=== PATIENT | male | born 1935 | race Caucasian/White ===

== ENCOUNTER 2016-09-25 22:29 | Inpatient (IN) ==
[2016-09-25] MEDS ORDERED: ALUM/MAG/SIMETH/LIDO VISC 1:1 30 ML BOTTLE PO STA (23:33)
[2016-09-25] MEDS ORDERED: NITROGLYCERIN 2% OINT 1 INCH/GM PACK TOP STA (23:33)
[2016-09-25] MEDS ORDERED: METOPROLOL TARTRATE 25 MG TABLET PO STA (23:33)
[2016-09-25] MEDS ORDERED: MORPHINE 2 MG/1 ML SYRINGE IV STA (23:33)
[2016-09-25] MEDS ORDERED: ONDANSETRON 4 MG/2 ML VIAL IV STA (23:33)
[2016-09-25] MEDS ORDERED: ASPIRIN 325 MG TABLET PO STA (23:33)
[2016-09-25] MEDS ORDERED: NITROGLYCERIN 2% OINT 1 INCH/GM PACK TOP ONE (23:44)
[2016-09-25] MEDS ORDERED: ONDANSETRON 4 MG/2 ML VIAL ONE (23:44)
[2016-09-25] MEDS ORDERED: METOPROLOL TARTRATE 25 MG TABLET ONE (23:44)
[2016-09-25] MEDS ORDERED: ASPIRIN 325 MG TABLET ONE (23:45)
[2016-09-25] MEDS ORDERED: MORPHINE 2 MG/1 ML SYRINGE ONE (23:45)
[2016-09-25] MEDS ORDERED: ALUM/MAG/SIMETH/LIDO VISC 1:1 30 ML BOTTLE PO ONE (23:45)
--- NOTE | 2016-09-26 00:11 | Emergency Department Note ---
IRohit Emily, am scribing for, and in the presence of, Yony Borja MD 00: 03. Huong Montana Charles R, MD, personally performed the services described in this documentation, ascribed by Allyssa Bee in my presence, and it is both accurate and complete . Arrival - Arrival Chief Complaint: Chest Pain Stated Complaint: Heart issues/right arm pain ED Nursing Triage Note: pt presented to triage via w/c with c/o chest pain that radiates to elena arm. pain resolved by arrival to triage. recent surgery on . 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 Pt reports taking a nitro when pain started, and is concerned when arm pain starts due to PMHx. Pt recently saw Dr. 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 Pt also had a blockage in cardiac stent which was only ballooned. Pt describes left arm pain as "pulsating as a heart beat," but denies sweating, nausea or SOB. Pt is a taking Eliquis and Plavix. PMHx of 4 angioplasty surgeries years ago, cardiac bypass with stents and saphenous vein graft to first obtuse marginal in 2013, HTN; Afib, post PCI in 2014; Cerbral palsy; MARTINEZ to LAD, SVG to RCA, SVG to OM1. Pt is referred to as "Creeper." Onset (ago): hour(s) Consistency: intermittent, now resolved Severity: mild, moderate Severity scale (1-10): 4 Quality: other (pulsating) Allergies/Adverse Reactions: Allergies Allergy/AdvReac Type Severity Reaction Status Date / Time dipyridamole Allergy Nausea Verified 12/04/14 06:50 [From Persantine] Home Medications: Home Medications Medication Instructions Recorded Confirmed Type Aspirin EC Tab 81 mg PO DAILY 06/01/16 06/01/16 History Atorvastatin [Lipitor] 20 mg PO QOTHER DAY 06/01/16 06/01/16 History Dutasteride [Avodart] 0.5 mg PO QAM 06/01/16 06/01/16 History Ferrous Gluconate 324 mg PO BID 06/01/16 06/01/16 History Multivitamin [Multivitamins] 1 each PO QAM 06/01/16 06/01/16 History Omeprazole 20 mg PO BID 06/01/16 06/01/16 History Polycarbophil [Fibercon] 1,875 mg PO QAM 06/01/16 06/01/16 History Trospium Chloride 20 mg PO QAM 06/01/16 06/01/16 History Enalapril Maleate 20 mg PO QPM #0 06/04/16 06/01/16 Rx Ticagrelor [Brilinta] 90 mg PO BID #60 tablet 06/04/16 Rx amLODIPine [Norvasc] 5 mg PO QAM #0 06/04/16 06/01/16 Rx Review of System - Review of System 12 point system: reviewed and no additional remarkable complaints except as stated - Review of System Constitutional: Absent: chills, diaphoresis, fever, weakness Respiratory: Absent: respiratory distress Cardiovascular: Present: chest pain (radiating to left arm; now resolved) Gastrointestinal: Absent: abdominal pain, nausea, vomiting Musculoskeletal: Present: arm pain (left arm pain, pulsating). Absent: back pain Skin: Absent: rash Neurological: Absent: headache, numbness, confusion, abnormal gait Medical,Surgical,& Family Hx - Medical History Cardio: History of: Cardiac Dysrhythmia (Atrial fibrillation post PCI in 2013), CAD (As above with coronary bypass grafting in 1995), Hypertension Neurology: History of: Cerebrovascular Accident (Lacunar infarct), Cerebral Palsy No history of: Seizures HEENT: History of: Eye Problem (right eye retnial occulsion) Other: History of: Miscellaneous Medical Problems (Basil cell CA right temporal region) - Surgical History Cardiac Surgeries: Sugical HX of: Cardiac Catheterization (stent and saphenous vein graft to first obtuse marginal in 2013), Cardiac Surgery (MARTINEZ to LAD, SVG to RCA, SVG to OM1) Neurologic Surgeries: Patient denies: Neurologic Surgery - Social History Smoking Status: Never smoker Frequency of Alcohol Use: None Type of Drug Use: None Marital Status: Lives With:: Spouse Exam Vital Signs: Vital Signs Temperature 97.1 F L 09/25/16 23:27 Pulse Rate 84 09/25/16 23:27 Respiratory Rate 18 09/25/16 23:27 Blood Pressure 148/73 09/25/16 23:27 O2 Sat by Pulse Oximetry 99 09/25/16 22:31 - General General appearance: alert, in no apparent distress - Head Head exam: Present: atraumatic, normocephalic - Eye Eye exam: Present: PERRL, EOMI - ENT ENT exam: Present: mucous membranes moist, other (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 Absent: mucous membranes dry - Neck Neck exam: Present: full ROM. Absent: tenderness - Chest Chest inspection: Present: symmetric chest wall rise. Absent: tenderness - Respiratory Respiratory exam: Present: normal lung sounds bilaterally. Absent: respiratory distress - Cardiovascular Cardiovascular exam: Present: regular rate, normal rhythm, normal heart sounds - Abdominal Exam Abdominal exam: Present: soft. Absent: tenderness - Extremities Exam Extremities exam: Present: full ROM. Absent: tenderness, pedal edema - Neurological Exam Neurological exam: Present: alert, oriented X3, CN II-XII intact. Absent: motor sensory deficit - Psychiatric Psychiatric exam: Present: normal affect, normal mood - Skin Skin exam: Present: warm, dry Course - Consultations Consultation #1: Dr. Sanchez will admit patient Time: 01:41 Results - Labs CBC & BMP: 09/25/16 23:48 09/25/16 23:48 Lab Results: I have reviewed the patients labs Labs: Laboratory Tests 09/25/16 09/25/16 23:48 23:48 Hgb 13.4 L Hct 39.5 L Troponin I 0.451 H Laboratory Tests 09/25/16 23:48 Sodium 140 Potassium 4.1 Chloride 104 Carbon Dioxide 27 BUN 24 H Creatinine 1.00 BUN/Creatinine Ratio 24.00 H Glucose 108 H Alkaline Phosphatase 120 H Albumin 3.1 L Albumin/Globulin Ratio 0.9 L Lipase 128.0 Disposition Clinical Impression: Chest pain, Elevated troponin, Coronary artery disease, Essential hypertension , Paroxysmal atrial fibrillation Case discussed with: patient, patient's family Disposition: Still a Patient Condition: Stable Time of Disposition: 01:42
[2016-09-26 00:21] LABS: PT Patient Result 10.3 SECS
[2016-09-26 00:39] LABS: Basophils % 0.3 % (0.0-0.8); Eosinophils # 0.1 10*3/uL (0.0-0.87); Eosinophils % 1.3 % (0.00-10.9); Hematocrit 39.5 VOL% (42.0-52.0); Hemoglobin 13.4 GM/DL (14.0-18.0); Immature Granulocytes % 0.7 %; Immature Granulocytes Absolute 0.05 #; Lymphocytes # 1.7 10*3/uL (1.4-4.0); Mean Corpuscular HGB Conc 33.9 GM/DL (32-36); Mean Corpuscular Hemoglobin 32 PG (27-34); Mean Corpuscular Volume 93.2 FL (87-102); Mean Platelet Volume 10.2 FL (9.6-12.0); Monocytes # 0.5 10*3/uL (0.11-0.8); Monocytes % 6.9 % (1.7-12.7); Neutrophils # 4.5 10*3/uL (1.4-7.4); Neutrophils % 65.8 % (38.7-73.9); Platelet Count 239 T/CUMM (130-400); Red Blood Count 4.24 MC/CUMM (3.8-5.5); Red Cell Distribution Width 12.4 % (9.3-17.3); White Blood Count 6.9 T/CUMM (4-12)
[2016-09-26 01:22] LABS: Alanine Aminotransferase 23 U/L (16-61); Albumin 3.1 G/DL (3.4-5.0); Alkaline Phosphatase 120 U/L (45-117); Aspartate Amino Transferase 25 U/L (0-37); Bilirubin,Total < 0.39 MG/DL (0.2-1.0); Blood Urea Nitrogen 24 MG/DL (7-18); Calcium 8.6 MG/DL (8.5-10.1); Glucose 108 MG/DL (74-106); Magnesium 2.1 MG/DL (1.8-2.4); Osmolality,Calculated 283.4 MOS/KG (273-304); Potassium 4.1 MMOL/L (3.5-5.1); Sodium 140 MMOL/L (136-145); Total Protein 6.5 G/DL (6.4-8.3)
[2016-09-26] MEDS ORDERED: SODIUM CHLORIDE 0.9% 1,000 ML IV SCH ×2 (02:54→16:30)
[2016-09-26] MEDS ORDERED: MAGNESIUM SULF RIDER 2 GM in PREMIX 1 EACH IV PRN ×2 (02:54→11:49)
[2016-09-26] MEDS ORDERED: ONDANSETRON 4 MG/2 ML VIAL IV PRN (02:54)
[2016-09-26] MEDS ORDERED: MAGNESIUM SULF RIDER 4 GM in PREMIX 1 EACH IV PRN (02:54)
[2016-09-26] MEDS ORDERED: MORPHINE 2 MG/1 ML SYRINGE IV PRN (02:54)
--- NOTE | 2016-09-26 03:17 | EKG Report ---
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
--- NOTE | 2016-09-26 03:46 | EKG Report ---
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
[2016-09-26 05:24] LABS: Basophils % 0.1 % (0.0-0.8); Eosinophils # 0.1 10*3/uL (0.0-0.87); Eosinophils % 1.5 % (0.00-10.9); Hematocrit 38.2 VOL% (42.0-52.0); Hemoglobin 12.9 GM/DL (14.0-18.0); Immature Granulocytes % 0.4 %; Immature Granulocytes Absolute 0.03 #; Lymphocytes # 1.4 10*3/uL (1.4-4.0); Lymphocytes % 21.2 % (21.2-54.2); Mean Corpuscular HGB Conc 33.8 GM/DL (32-36); Mean Corpuscular Hemoglobin 31 PG (27-34); Mean Corpuscular Volume 92.9 FL (87-102); Mean Platelet Volume 10.4 FL (9.6-12.0); Monocytes # 0.5 10*3/uL (0.11-0.8); Monocytes % 7.2 % (1.7-12.7); Neutrophils # 4.7 10*3/uL (1.4-7.4); Neutrophils % 69.6 % (38.7-73.9); Platelet Count 220 T/CUMM (130-400); Red Blood Count 4.11 MC/CUMM (3.8-5.5); Red Cell Distribution Width 12.3 % (9.3-17.3); White Blood Count 6.8 T/CUMM (4-12)
[2016-09-26 05:46] LABS: Hypochromasia Slight; Platelet Estimate Adequate
[2016-09-26 06:07] LABS: Albumin 3.1 G/DL (3.4-5.0); Bilirubin,Total 0.6 MG/DL (0.2-1.0); Calcium 8.4 MG/DL (8.5-10.1); Osmolality,Calculated 280.4 MOS/KG (273-304); Potassium 4.3 MMOL/L (3.5-5.1); Total Protein 6.3 G/DL (6.4-8.3)
[2016-09-26 06:18] LABS: Magnesium 2.2 MG/DL (1.8-2.4); Risk Ratio 3.58; Thyroid Stimulating Hormone 1.79 uIU/ml (0.358-3.74); VLDL CHOLESTEROL 26.6 MG/DL
--- NOTE | 2016-09-26 06:43 | EKG Report ---
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
[2016-09-26] MEDS: NITROGLYCERIN 2% OINT 1 INCH/GM PACK TOP SCH ×3 (06:59→18:09)
--- NOTE | 2016-09-26 08:19 | XRay Report ---
Exam: XR chest 1V portable Indication: Chest pain cardia megaly Comparison study: 05/22/2016 chest radiograph Findings: Cardiac silhouette is mildly enlarged with tortuosity and atherosclerotic changes of the descending thoracic aorta, similar to prior. Similar perihilar and diffuse bilateral interstitial prominence likely representing degree of underlying scarring. There is no focal consolidation. Mild elevation right hemidiaphragm is similar to prior. Low lung volumes are noted. There is no definite pneumothorax or pleural effusion. Median sternotomy wiring is noted. Impression: Essentially stable mild cardiomegaly, postsurgical changes and suggestion of interstitial scarring. PROCEDURE INTERPRETED AT [facility] DEPARTMENT OF RADIOLOGY Final Report Signed by: Bro Ibarra
[2016-09-26] MEDS ORDERED: ENOXAPARIN 40 MG/0.4 ML SYRINGE SUBCUT SCH (09:00)
--- NOTE | 2016-09-26 09:00 | Cardiology History & Physical ---
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 transplanted heart: [place] heart Associated angina: with stable angina Qualified Code(s): I25.708 - Atherosclerosis of coronary artery bypass graft(s) , unspecified, with other forms of angina pectoris (4) History of atrial fibrillation Status: Chronic Assessment and plan: SEE PLAN OF CARE LISTED BELOW Current Visit: No (5) Dyslipidemia Status: Chronic Assessment and plan: SEE PLAN OF CARE LISTED BELOW Current Visit: No (6) Hypertension Status: Chronic Current Visit: No Qualifiers: Hypertension type: essential hypertension Qualified Code(s): I10 - Essential (primary) hypertension (7) Elevated troponin Status: Acute Assessment and plan: SEE PLAN OF CARE LISTED BELOW Current Visit: Yes History of Present Illness Chief complaint: chest pain, elevated CIEs 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 March 2013 PCI with BMS of Cx SVG graft to OM. June 03, 2016 required PTCA of BMS to Cx graft for NSTEMI), hypertension, dyslipidemia, PVD, sedentary lifestyle. History of paroxysmal A. fib for which he takes Eliquis. Eliquis and Plavix were held briefly for surgery but resumed shortly thereafter. Recently diagnosed with metastatic basal cell carcinoma of the face, metastatic carcinoma to L3 and humerus. First of September underwent surgery to remove facial nerve due to basal cell carcinoma. (See heart catheterization report listed below). History of angiodysplasia of the stomach several years ago with anemia , has been stable on Plavix and Eliquis. Patient was doing relatively well until last evening around 9 PM when he began to walk up stairs. Normally, he recognizes his anginal symptoms as chest pain radiating to the right arm. However, last evening he had chest discomfort described as "squeezing and tightness" which radiated to to both arms, associated with mild shortness of breath. Lasted approximately 45 minutes and was relieved spontaneously while being transported to the ED. He has had no recurrent chest pain since admission. Troponin 0.451-0.549 this admission. EKG does not reveal STEMI. He has received aspirin, 1 dose of Lovenox last evening, beta-marito and nitrates. Eliquis on hold this morning. Patient did not breakfast this morning. I will further discuss with Dr. Sanchez and await additional recommendations. June 03, 2016 cardiac catheterization performed by Dr. Barnett revealed the followin: In-stent restenosis had a prior bare-metal stent site of the circumflex graft now treated with balloon angioplasty with a good angiographic result 2: Diffuse severe [place] multivessel coronary artery disease 3: Widely patent graft to the right coronary artery and left anterior descending 4: Distal disease of the posterolateral branch of the right coronary for continued medical management 5: Overall near normal LV function ejection fraction 50% with lateral and apical hypokinesis 6: Angio-Seal closure right femoral arteriotomy site Discussion recommendations: The patient presents with a non-ST elevation myocardial infarction likely related to bare-metal stent restenosis. Because of the patient's age and history of bleeding I felt the best approach would be to optimize treatment without drug-eluting stent placement if possible and for that reason he underwent balloon angioplasty of this area with an excellent angiographic result. Our plan will be to continue aggressive risk factor modification and anti-thrombotic treatment as tolerated. Findings have been reviewed with the patient and with his family. ASSESSMENT/PLAN: 1. CHEST PAIN CONCERNING FOR ANGINA - continue cycle cardiac biomarkers. Patient is chest pain-free. Has received Aspirin, Lovenox, beta-blockade and nitrates. 2. ELEVATED TROPONIN - continue to cycle cardiac biomarkers. Patient has had breakfast this morning but I will keep him n.p.o. to further discuss with Dr. Sanchez 3. KNOWN CAD S/P CABG - See above information regarding details of known disease 4. HYPERTENSION - usually well-controlled. Just medications accordingly during hospital stay. 5. DYSLIPIDEMIA - LDL 85. Continue lipid-lowering agent. 6. METASTATIC BASAL CELL CARCINOMA OF THE FACE, L3 AND HUMERUS - continue current plan of care. Home Medications Medication Instructions Recorded Confirmed Type Atorvastatin [Lipitor] 20 mg PO BEDTIME 06/01/16 09/26/16 History Dutasteride [Avodart] 0.5 mg PO QAM 06/01/16 09/26/16 History Ferrous Gluconate 324 mg PO BID 06/01/16 09/26/16 History Multivitamin [Multivitamins] 1 each PO QAM 06/01/16 09/26/16 History Omeprazole 20 mg PO BID 06/01/16 09/26/16 History Polycarbophil [Fibercon] 1,875 mg PO BEDTIME 06/01/16 09/26/16 History Enalapril Maleate 20 mg PO QPM #0 06/04/16 09/26/16 Rx amLODIPine [Norvasc] 5 mg PO QAM #0 06/04/16 09/26/16 Rx Apixaban [Eliquis] 2.5 mg PO BID 09/26/16 09/26/16 History Clopidogrel [Plavix] 75 mg PO DAILY 09/26/16 09/26/16 History Trospium [Sanctura] 20 mg PO BEDTIME 09/26/16 09/26/16 History Allergies Allergy/AdvReac Type Severity Reaction Status Date / Time dipyridamole Allergy Nausea Verified 12/04/14 06:50 [From Persantine] Review of systems: REVIEW OF SYSTEMS: - Constitutional Constitutional: Present: Fatigue. Absent: syncope, anorexia, night sweats - EENT Face: Pain from recent surgery Eyes: Absent: blurry vision, loss of vision, diplopia Ears: Absent: decreased hearing, ear pain, ear discharge - Cardiovascular Cardiovascular: Present: chest pain with exertion, mild dyspnea on exertion. Denies edema, palpitations. Absent: chest pain with deep breath, claudication - Respiratory Respiratory: Present: MONREAL, but denies cough. Absent: wheezing, hemoptysis, change in phlegm color - Gastrointestinal Gastrointestinal: Present: constipation. Absent: abdominal pain, hematemesis , hematochezia, melena, change in bowel habits, nausea - Genitourinary Genitourinary: Absent: difficulty urinating, dysuria, urinary hesitancy, flank pain - Musculoskeletal Musculoskeletal: Present: back pain Absent: joint swelling, muscle cramps, muscle weakness - Neurological Neurological: Present: normal gait without frequent falls. Absent: dizziness, hemiparesis - Psychiatric Psychiatric: Absent: anxiety, depression, difficulty concentrating - Endocrine Endocrine: Present: fatigue. Absent: cold intolerance, heat intolerance, polyuria, polyphagia, polydipsia - Hematologic/Lymphatic Hematologic/Lymphatic: Present: easy bruising. Absent: easy bleeding -Integumentary Integumentary: Absent: lesions, rashes, skin breakdown Medical,Surgical,& Family Hx - Medical History Cardio: History of: Cardiac Dysrhythmia (Atrial fibrillation post PCI in 2013), CAD (As above with coronary bypass grafting in 1995), Hypertension, [place] Neurology: History of: Cerebrovascular Accident (Lacunar infarct), Cerebral Palsy No history of: Seizures HEENT: History of: Eye Problem (right eye retnial occulsion) Other: History of: Miscellaneous Medical Problems (Basil cell CA right temporal region, l3, humerus) - Surgical History Cardiac Surgeries: Sugical HX of: Cardiac Catheterization (stent and saphenous vein graft to first obtuse marginal in 2013), Cardiac Surgery (MARTINEZ to LAD, SVG to RCA, SVG to OM1) Neurologic Surgeries: Patient denies: Neurologic Surgery - Social History Smoking Status: Never smoker Have you smoked in the last 12 months: No Frequency of Alcohol Use: None Type of Drug Use: None Marital Status: Lives With:: Spouse Functional capacity: independent ambulation Cardiology Physical Exam - Constitutional Vitals: Vital Signs Temp Pulse Resp BP Pulse Ox 97.2 F L 72 18 158/81 97 09/26/16 07:43 09/26/16 07:43 09/26/16 07:43 09/26/16 07:43 09/26/16 07:43 Intake and Output 09/25/16 09/26/16 09/26/16 23:59 07:59 15:59 Output Total 200 / 200 Balance -200 / -200 Output: Urine 200 / 200 Other: Voiding Method Urinal Weight 91.172 kg 92.079 kg Patient Weight 09/26/16 23:59 Weight 92.079 kg Exam: General: [Appears well with no apparent distress.] [Pleasant and cooperative. ] [Appears comfortable.] HEENT: [PERRL. Mucous membranes moist. No jaundice noted. Conjunctiva moist and clear, sclerae anicteric] Neck: No JVD/HJR, no thyromegaly or lymphadenopathy noted. No carotid bruit appreciated Cardiac: [Regular rate and rhythm.] [No murmur rub or gallop.] Lungs: [Clear to auscultation without accessory muscle use to assist the respiratory pattern.] Not requiring oxygen Abdomen: Soft, bowel sounds normoactive. Nontender and nondistended. No abdominal bruit or thrill noted. No masses noted. Musculoskeletal: No fluid collection. Decreased range of motion is noted. Extremities: No clubbing, cyanosis noted. [ No edema noted.] Upper extremity pulses 2+. Lower extremity pulses 2+. Capillary refill less than 3 seconds. Skin: No unusual lesions or rashes. No skin breakdown appreciated. Neuro: Awake, alert and oriented 3. Moves all extremities well without hemiparesis or paralysis. No essential tremor is appreciated. Result/EKG - Labs CBC & BMP: 09/26/16 03:57 09/26/16 03:57 Lab Results: I have reviewed the past 24 hour labs Labs: Laboratory Results - last 24 hr 09/25/16 09/25/16 09/25/16 23:48 23:48 23:48 WBC RBC Hgb Hct MCV MCH MCHC RDW Plt Count MPV Neut % (Auto) Lymph % (Auto) [place] % (Auto) Eos % (Auto) Baso % (Auto) Neut # (Auto) Lymph # (Auto) [place] # (Auto) Eos # (Auto) Baso # (Auto) Immature Gran % Nucleated RBC % Immature Gran # Nucleated RBCs # Platelet Estimate Hypochromasia Morphology Comment INR 1.0 PT Patient/Control Mix 10.3 Sodium 140 Potassium 4.1 Chloride 104 Carbon Dioxide 27 Anion Gap 13.1 BUN 24 H Creatinine 1.00 GFR Calculation 87 BUN/Creatinine Ratio 24.00 H Glucose 108 H Calculated Osmolality 283.4 Calcium 8.6 Magnesium 2.1 Total Bilirubin < 0.39 AST 25 ALT 23 Alkaline Phosphatase 120 H Troponin I B-Natriuretic Peptide 92 Total Protein 6.5 Albumin 3.1 L Globulin 3.4 Albumin/Globulin Ratio 0.9 L Triglycerides Cholesterol LDL Cholesterol VLDL Cholesterol HDL Cholesterol Heart Disease Risk Ratio Lipase 128.0 TSH 3rd Generation 09/25/16 09/25/16 09/26/16 23:48 23:48 03:57 WBC 6.9 RBC 4.24 Hgb 13.4 L Hct 39.5 L MCV 93.2 MCH 32 MCHC 33.9 RDW 12.4 Plt Count 239 MPV 10.2 Neut % (Auto) 65.8 Lymph % (Auto) 25.0 [place] % (Auto) 6.9 Eos % (Auto) 1.3 Baso % (Auto) 0.3 Neut # (Auto) 4.5 Lymph # (Auto) 1.7 [place] # (Auto) 0.5 Eos # (Auto) 0.1 Baso # (Auto) 0.0 Immature Gran % 0.7 Nucleated RBC % 0.0 Immature Gran # 0.05 Nucleated RBCs # 0.00 Platelet Estimate Hypochromasia Morphology Comment INR PT Patient/Control Mix Sodium Potassium Chloride Carbon Dioxide Anion Gap BUN Creatinine GFR Calculation BUN/Creatinine Ratio Glucose Calculated Osmolality Calcium Magnesium Total Bilirubin AST ALT Alkaline Phosphatase Troponin I 0.451 H 0.485 H B-Natriuretic Peptide Total Protein Albumin Globulin Albumin/Globulin Ratio Triglycerides Cholesterol LDL Cholesterol VLDL Cholesterol HDL Cholesterol Heart Disease Risk Ratio Lipase TSH 3rd Generation 09/26/16 09/26/16 09/26/16 03:57 03:57 03:57 WBC 6.8 RBC 4.11 Hgb 12.9 L Hct 38.2 L MCV 92.9 MCH 31 MCHC 33.8 RDW 12.3 Plt Count 220 MPV 10.4 Neut % (Auto) 69.6 Lymph % (Auto) 21.2 [place] % (Auto) 7.2 Eos % (Auto) 1.5 Baso % (Auto) 0.1 Neut # (Auto) 4.7 Lymph # (Auto) 1.4 [place] # (Auto) 0.5 Eos # (Auto) 0.1 Baso # (Auto) 0.0 Immature Gran % 0.4 Nucleated RBC % 0.0 Immature Gran # 0.03 Nucleated RBCs # 0.00 Platelet Estimate Adequate Hypochromasia Slight Morphology Comment INR PT Patient/Control Mix Sodium 140 Potassium 4.3 Chloride 106 Carbon Dioxide 24 Anion Gap 14.3 BUN 21 H Creatinine 0.90 GFR Calculation 99 BUN/Creatinine Ratio 23.00 H Glucose 89 Calculated Osmolality 280.4 Calcium 8.4 L Magnesium Total Bilirubin 0.60 AST 29 ALT 22 Alkaline Phosphatase 120 H Troponin I B-Natriuretic Peptide 91 Total Protein 6.3 L Albumin 3.1 L Globulin 3.2 Albumin/Globulin Ratio 0.9 L Triglycerides Cholesterol LDL Cholesterol VLDL Cholesterol HDL Cholesterol Heart Disease Risk Ratio Lipase TSH 3rd Generation 09/26/16 09/26/16 03:57 06:46 WBC RBC Hgb Hct MCV MCH MCHC RDW Plt Count MPV Neut % (Auto) Lymph % (Auto) [place] % (Auto) Eos % (Auto) Baso % (Auto) Neut # (Auto) Lymph # (Auto) [place] # (Auto) Eos # (Auto) Baso # (Auto) Immature Gran % Nucleated RBC % Immature Gran # Nucleated RBCs # Platelet Estimate Hypochromasia Morphology Comment INR PT Patient/Control Mix Sodium Potassium Chloride Carbon Dioxide Anion Gap BUN Creatinine GFR Calculation BUN/Creatinine Ratio Glucose Calculated Osmolality Calcium Magnesium 2.2 Total Bilirubin AST ALT Alkaline Phosphatase Troponin I 0.549 H B-Natriuretic Peptide Total Protein Albumin Globulin Albumin/Globulin Ratio Triglycerides 133 Cholesterol 154 LDL Cholesterol 85.0 VLDL Cholesterol 26.6 HDL Cholesterol 43 Heart Disease Risk Ratio 3.58 Lipase TSH 3rd Generation 1.790 - Diagnostic Findings Procedure: Chest x-ray: report reviewed by me - EKG EKG results: interpreted by me EKG shows: sinus rhythm
--- NOTE | 2016-09-26 09:09 | XRay Report ---
Exam: XR chest 2V Date: 09/26/2016 659 AM Indication: Shortness of breath Comparison: 09/25/2016 Technical: PA lateral Findings: Mild prominence the cardiac silhouette. Previous sternotomy and ASVD present. External cardiac leads are present. Atelectatic change present in the right base and/or scarring. Surgical clip present over the right neck is present. No pneumothorax. Degenerative spondylosis change present thoracic spine with anterolateral marginal osteophytes. Impression: 1. Previous sternotomy without acute cardiopulmonary pathology 2. Minimal scarring present or atelectatic change in the right base 3. Degenerative spondylosis change thoracic spine PROCEDURE INTERPRETED AT [facility] DEPARTMENT OF RADIOLOGY Final Report Signed by: Dr. Gaston Vogt
[2016-09-26] MEDS: amLODIPine 5 MG TABLET PO SCH (10:42)
[2016-09-26] MEDS: CLOPIDOGREL 75 MG TABLET PO SCH (10:42)
[2016-09-26] MEDS: DUTASTERIDE 0.5 MG CAPSULE PO SCH (10:42)
[2016-09-26] MEDS: FERROUS GLUCONATE 324 MG TABLET PO SCH ×2 (10:42→21:05)
[2016-09-26] MEDS: MULTIVITAMIN (CENTRUM) TABLET PO SCH (10:42)
[2016-09-26] MEDS ORDERED: POTASSIUM CHLORIDE RIDER 10 MEQ in PREMIX 1 EACH IV PRN (11:49)
[2016-09-26] MEDS ORDERED: DIAZEPAM 5 MG TABLET PO ONE (11:49)
[2016-09-26] MEDS ORDERED: diphenhydrAMINE CAP 25 MG CAPSULE PO ONE (11:49)
[2016-09-26] MEDS ORDERED: HEPARIN/NACL 0.9% 2 UNITS/ML 1,000 ML IV ONE ×2 (14:34)
[2016-09-26] MEDS ORDERED: LIDOCAINE 1% 20 ML VIAL ONE ×2 (14:34)
[2016-09-26] MEDS ORDERED: HYDROmorphone 2 MG/1 ML VIAL ONE (14:51)
[2016-09-26] MEDS ORDERED: MIDAZOLAM 2 MG/2 ML VIAL ONE (15:01)
[2016-09-26] MEDS ORDERED: ASPIRIN CHEW 81 MG TABLET PO ONE ×2 (15:15→16:13)
[2016-09-26] MEDS ORDERED: BIVALIRUDIN 250 MG VIAL IV ONE (15:15)
[2016-09-26] MEDS ORDERED: CLOPIDOGREL 300 MG TABLET ONE (16:17)
--- NOTE | 2016-09-26 16:25 | Cardiac Catheterization ---
Date of Procedure:: 09/26/16 Procedure: CLINICAL SUMMARY: The patient has known multivessel coronary artery disease and presented with unstable angina symptoms. He is undergoing cardiac catheterization for definitive coronary artery assessment and possible revascularization. PROCEDURES PERFORMED: 1. Right femoral percutaneous arteriotomy 2. Left heart catheterization. 3. Resting hemodynamics. 4. Left ventriculography. 5. Coronary arteriography. 6. Right femoral arteriogram. 7. Angio-Seal closure of the right femoral artery. 8. Coronary artery bypass graft angiography. 9. Percutaneous coronary intervention to the saphenous vein graft to the proximal segment of the obtuse marginal branch at a site of in-stent restenosis with 2 stents placed, a 4.0 x 38 mm Xience alpine drug-eluting stent and a 4.0 x 18 mm Xience alpine drug-eluting stent placed in an overlapping fashion. DESCRIPTION OF PROCEDURE: After obtaining informed consent, the patient was brought to the cardiac catheterization lab where the right groin was prepped and draped in the usual sterile manner. Using IV sedation, local anesthesia, and Modified Seldinger technique, a needle was placed in the right femoral artery and a sheath was positioned without difficulty. A left coronary catheter was advanced over a guidewire under fluoroscopic control to the ascending aorta where angiograms of the left coronary artery were undertaken in multiple views. After adequate angiograms, this catheter was withdrawn and a right coronary catheter was advanced over a guidewire under fluoroscopic control to the ascending aorta with angiograms of the RCA and bypass grafts were undertaken in numerous projections. We then proceeded directly to percutaneous intervention. We tried an AL-1 guide, and LCB guide, and finally engaged the saphenous vein to the obtuse marginal with a EBU 3.0 interventional guide. We passed PT Graphix wire beyond the area of stenosis in the proximal vessel and then performed balloon angioplasty with a 3.5 x 25 mm [place] angioplasty balloon. We then performed stenting with a 4.0 x 38 millimeter Xience alpine drug-eluting stent in the proximal to mid segment of the graft. Then, with the assistance of jesus Martinez, we placed a 4.0 x 18 mm Xience alpine drug-eluting stent proximal to the first stent but overlapping with it. We then did a post inflation with a 4.0 x 15 mm NC balloon at 2 locations within the stents. An excellent angiographic result was achieved with no significant residual stenosis. After adequate angiograms, this catheter was removed and a pigtail ventriculographic catheter was advanced over a guidewire under fluoroscopic control to the aortic valve and left ventricular pressures were measured. After adequate pressures were measured, this catheter was used to perform left ventriculography in the TOBAR projection. This catheter was then withdrawn under hemodynamic monitoring and removed from the patient. A right femoral arteriogram was performed showing adequate sheath placement for closure device deployment. The sheath was then removed and an Angio-Seal device was used to obtain hemostasis. The patient was transferred back to the room having suffered no immediate complications. HEMODYNAMICS: See the accompanying data sheet. CORONARY ARTERIOGRAPHY: LEFT MAIN: The left main coronary artery is a large caliber vessel, which bifurcates into the left anterior descending and left circumflex coronary arteries. The left main coronary artery has no significant obstructive disease. LEFT CIRCUMFLEX: The left circumflex coronary artery is a small to moderate sized vessel which gives off a moderate sized obtuse marginal branch before being occluded in its mid segment. The distal vessel fills via a saphenous vein graft. LEFT ANTERIOR DESCENDING: The left anterior descending artery is a moderate- sized vessel which has severe disease in its proximal to mid segment before a complete occlusion. The distal vessel fills via a patent left internal mammary arterial graft. RIGHT CORONARY ARTERY: The right coronary artery is occluded at its origin. Saphenous vein graft to the right coronary artery: This is a large graft which has mild diffuse luminal irregularities but no significant obstructive disease is seen. Saphenous vein graft to the obtuse marginal branch: This graft has severe diffuse in-stent restenosis throughout its proximal segment with areas of up to 99% stenosis and BETH I flow distally. Left internal mammary to left anterior descending coronary artery graft. This bypass graft is large in size and widely patent throughout its course. LEFT VENTRICULOGRAPHY: Left ventriculogram shows a left ventricular ejection fraction estimated approximately 40% with mild global hypokinesis. PERIPHERAL ARTERIOGRAPHY: Right femoral arteriogram shows a normal right iliofemoral artery with adequate sheath placement for closure device deployment. IMPRESSIONS: 1. Successful percutaneous coronary intervention to the saphenous vein graft to the proximal segment of the obtuse marginal branch at a site of in-stent restenosis with 2 stents placed, a 4.0 x 38 mm Xience alpine drug-eluting stent and a 4.0 x 18 mm Xience alpine drug-eluting stent placed in an overlapping fashion. 2. Severe [place] three-vessel coronary artery disease as described above. 3. The saphenous vein to the right coronary artery and the left internal mammary to the left anterior descending coronary artery grafts are widely patent. 4. Mild ischemic cardiomyopathy. 5. Normal right iliofemoral artery with successful Angio-Seal closure of this vessel. PLAN: Patient will be transferred back to the telemetry unit for postintervention monitoring and management. If he does well, he could possibly be discharged home tomorrow. Anesthesia: minimal conscious sedation Surgeon / Physician: Wilfred Aldrich Estimated blood loss: minimal Disposition: floor - Medications / Follow-up
[2016-09-26] MEDS ORDERED: TROSPIUM 20 MG PO SCH (21:00)
[2016-09-26] MEDS ORDERED: POLYCARBOPHIL 625 MG TABLET PO SCH (21:00)
[2016-09-26] MEDS ORDERED: ATORVASTATIN 20 MG TABLET PO SCH (21:00)
[2016-09-27] MEDS: NITROGLYCERIN 2% OINT 1 INCH/GM PACK TOP SCH ×2 (01:34→06:32)
[2016-09-27 05:25] LABS: Basophils % 0.1 % (0.0-0.8); Eosinophils # 0.1 10*3/uL (0.0-0.87); Eosinophils % 1.1 % (0.00-10.9); Hematocrit 36.9 VOL% (42.0-52.0); Hemoglobin 12.7 GM/DL (14.0-18.0); Immature Granulocytes % 0.4 %; Immature Granulocytes Absolute 0.03 #; Lymphocytes # 1.5 10*3/uL (1.4-4.0); Lymphocytes % 18.3 % (21.2-54.2); Mean Corpuscular HGB Conc 34.4 GM/DL (32-36); Mean Corpuscular Hemoglobin 32 PG (27-34); Mean Corpuscular Volume 91.8 FL (87-102); Mean Platelet Volume 10.3 FL (9.6-12.0); Monocytes # 0.6 10*3/uL (0.11-0.8); Monocytes % 7.1 % (1.7-12.7); Platelet Count 202 T/CUMM (130-400); Red Blood Count 4.02 MC/CUMM (3.8-5.5); Red Cell Distribution Width 12.3 % (9.3-17.3); White Blood Count 8.2 T/CUMM (4-12)
[2016-09-27 05:59] LABS: Calcium 8.4 MG/DL (8.5-10.1); Osmolality,Calculated 277.5 MOS/KG (273-304)
[2016-09-27 06:39] LABS: CKMB % 8.7 %
[2016-09-27 06:44] LABS: Troponin I Only 1.92 NG/ML (0.00-0.045)
--- NOTE | 2016-09-27 07:33 | EKG Report ---
Stationary ECG Study [facility] Test Date: 09/27/2016 7:32:51 AM Pat Name: LOC LAIRD Department: Room: 272 Gender: M Orthopaedic General: ANUP : 1935 Requested by: Kristopher Hardin Order Number: [id number] Reading MD: FAIZA CASTILLO Intervals [place] Rate: 82 P: 42 NV: 163 QRS: -50 QRSD: 121 T: 127 QT: 401 QTc: 439 Interpretive Statements SINUS RHYTHM WITH OCCASIONAL VENTRICULAR PREMATURE COMPLEXES WITH OCCASIONAL SUPRAVENTRICULAR PREMATURE COMPLEXES at 82 bpm RIGHT BUNDLE BRANCH BLOCK LEFT ANTERIOR FASCICULAR BLOCK LEFT VENTRICULAR HYPERTROPHY AND ST-T CHANGE POSSIBLE ANTERIOR MYOCARDIAL INFARCTION, OF INDETERMINATE AGE Electronically Signed On 09-28-16 12:11:41 CDT by FAIZA CASTILLO [email or web address]
[2016-09-27 08:35] VITALS: BP 124/78
[2016-09-27] MEDS: amLODIPine 5 MG TABLET PO SCH (09:40)
[2016-09-27] MEDS: CLOPIDOGREL 75 MG TABLET PO SCH (09:40)
[2016-09-27] MEDS: MULTIVITAMIN (CENTRUM) TABLET PO SCH (09:40)
[2016-09-27] MEDS: FERROUS GLUCONATE 324 MG TABLET PO SCH (09:40)
[2016-09-27] MEDS: DUTASTERIDE 0.5 MG CAPSULE PO SCH (09:42)
[2016-09-27] MEDS ORDERED: ASPIRIN EC 81 MG TABLET PO SCH (10:00)
--- NOTE | 2016-09-27 10:04 | Discharge Summary ---
Hospital Course - Hospital Course Hospital Course: OUTSIDE [employer] ENGINEER: DR. RENE SEPTEMBER 26, 2016: Mr. Jez Jr., 81WM, with risk factors significant for: advanced age, known coronary artery disease (S/P CABG 1996: MARTINEZ to LAD, SVG to RCA, SVG to OM1. March 2013 PCI with BMS of Cx SVG graft to OM. June 03, 2016 required PTCA of BMS to Cx graft for NSTEMI), hypertension, dyslipidemia, PVD, sedentary lifestyle. History of paroxysmal A. fib for which he takes Eliquis. Eliquis and Plavix were held briefly for surgery but resumed shortly thereafter. 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 First september underwent surgery to remove facial nerve due to basal cell carcinoma. History of angiodysplasia of the stomach several years ago with anemia, has been stable on Plavix and Eliquis. Patient was doing relatively well until last evening around 9 PM when he began to walk up stairs. Normally, he recognizes his anginal symptoms as chest pain radiating to the right arm. However, last evening he had chest discomfort described as "squeezing and tightness" which radiated to to both arms, associated with mild shortness of breath. Lasted approximately 45 minutes and was relieved spontaneously while being transported to the ED. He has had no recurrent chest pain since admission. Troponin 0.451-0.549 this admission. EKG does not reveal STEMI. He has received aspirin, 1 dose of Lovenox last evening, beta-marito and nitrates. Eliquis on hold this morning. Patient did not breakfast this morning. I will further discuss with Dr. Sanchez and await additional recommendations. SEPTEMBER 27, 2016: Underwent cardiac catheterization September 26, 2016, performed by Dr. Wilfred Aldrich. The following is noted: IMPRESSIONS: 1. Successful percutaneous coronary intervention to the saphenous vein graft to the proximal segment of the obtuse marginal branch at a site of in- stent restenosis with 2 stents placed, a 4.0 x 38 mm Xience alpine drug-eluting stent and a 4.0 x 18 mm Xience alpine drug-eluting stent placed in an overlapping fashion. 2. Severe [place] three-vessel coronary artery disease as described above. 3. The saphenous vein to the right coronary artery and the left internal mammary to the left anterior descending coronary artery grafts are widely patent. 4. Mild ischemic cardiomyopathy. 5. Normal right iliofemoral artery with successful Angio-Seal closure of this vessel. Patient has done well overnight without chest pain, heaviness, tightness. He has been walking without difficulty. Right groin is soft, free of hematoma or bruit. Labs are stable this morning. He currently has an appointment to see Dr. Rene October 18, 2016 at 0 900. I have encouraged him to keep this appointment. I will add the following to that appointment with Dr. Rene: BMP , magnesium, CBC. He will be discharged home on the following medications: ECASA 81 mg orally daily Plavix 75 mg orally daily Eliquis 2.5 mg orally twice daily starting Friday, September 28, 2016 Norvasc 5 mg orally daily Enalapril maleate 20 mg orally each evening September 27, 2016 Ferrous gluconate 324 mg orally twice daily Avodart 0.5 mg orally each morning [place] 20 mg orally each evening Atorvastatin 20 mg orally each evening Avoiding beta blockers due to history of lower heart rates in the past - Time spent with patient Time with patient DS: Greater than 30 minutes Diagnosis - Discharge Diagnosis (1) Metastatic basal cell carcinoma Status: Chronic (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 Please instruct patient to keep appointment. But, please add: BMP, magnesium, CBC to be drawn that day.) Discharge Plan - Discharge Data Disposition: Disch To Home/Self Care Condition at Discharge: Stable Discharge Diet: heart healthy Activity: other (Post cath expectations) Hygiene: other (Post cath expectations) Weight Bearing at Discharge: other (Post cath expectations) Driving: not until seen by doctor Contact your physician if you experience:: fever over 101, Difficulty voiding, Redness or swelling, Nausea/Vomiting, Shortness of breath, Bleeding, pain uncontrolled by pain medications - Discharge Medications New Aspirin EC Tab 81 mg PO DAILY #30 tablet Continue Atorvastatin [Lipitor] 20 mg PO BEDTIME Polycarbophil [Fibercon] 1,875 mg PO BEDTIME Omeprazole 20 mg PO BID Multivitamin [Multivitamins] 1 each PO QAM Dutasteride [Avodart] 0.5 mg PO QAM Ferrous Gluconate 324 mg PO BID amLODIPine [Norvasc] 5 mg PO QAM #0 Clopidogrel [Plavix] 75 mg PO DAILY Enalapril Maleate 20 mg PO QPM #0 Trospium [Sanctura] 20 mg PO BEDTIME Apixaban [Eliquis] 2.5 mg PO BID - Follow Up or Referral - Forms/Instructions Additional Discharge Instructions: Please instruct patient to resume Eliquis 2.5 mg orally twice daily starting Friday evening, September 28, 2016. Also, please instruct patient to resume enalapril maleate 20 mg orally each evening starting tonight. Exam - Constitutional Vitals: Period Temp Pulse Resp BP Sys/[place] Pulse Ox Last 24 Hr 96.1 F-98.2 F 59-96 14-20 118-148/58-78 92-97 Exam: General: [Appears well with no apparent distress.] [Pleasant and cooperative. ] [Appears comfortable.] HEENT: [Multiple surgical incisions to the right head face and neck, healing well without dehiscence or drainage. Mucous membranes moist. No jaundice noted. Conjunctiva moist and clear, sclerae anicteric] Neck: No obvious JVD/HJR, no thyromegaly or lymphadenopathy noted. No carotid bruit appreciated Cardiac: [Regular rate and rhythm.] [No obvious murmur rub or gallop.] Lungs: [Clear to auscultation without accessory muscle use to assist the respiratory pattern.] Not requiring oxygen Abdomen: Soft, bowel sounds normoactive. Nontender and nondistended. No abdominal bruit or thrill noted. No masses noted. Musculoskeletal: No fluid collection. Decreased range of motion is noted. Extremities: Right groin soft, free of hematoma or bruit. No clubbing, cyanosis noted. [ No edema noted.] Upper extremity pulses 2+. Lower extremity pulses 2+. Capillary refill less than 3 seconds. Skin: No unusual lesions or rashes. No skin breakdown appreciated. Neuro: Awake, alert and oriented 3. Moves all extremities well without hemiparesis or paralysis. No essential tremor is appreciated. Discharge Results Labs on day of discharge: Labs from last 24 hours 09/27/16 09/27/16 09/27/16 04:47 04:47 04:47 WBC 8.2 RBC 4.02 Hgb 12.7 L Hct 36.9 L MCV 91.8 MCH 32 MCHC 34.4 RDW 12.3 Plt Count 202 MPV 10.3 Neut % (Auto) 73.0 Lymph % (Auto) 18.3 L [place] % (Auto) 7.1 Eos % (Auto) 1.1 Baso % (Auto) 0.1 Neut # (Auto) 6.0 Lymph # (Auto) 1.5 [place] # (Auto) 0.6 Eos # (Auto) 0.1 Baso # (Auto) 0.0 Immature Gran % 0.4 Nucleated RBC % 0.0 Immature Gran # 0.03 Nucleated RBCs # 0.00 Sodium 139 Potassium 4.0 Chloride 104 Carbon Dioxide 27 Anion Gap 12.0 BUN 16 Creatinine 0.80 GFR Calculation 104 BUN/Creatinine Ratio 20.00 Glucose 94 Calculated Osmolality 277.5 Calcium 8.4 L Magnesium 2.0 Total Creatine Kinase 92 CK-MB (CK-2) 8.0 H CK and CKMB Interp 8.7 Troponin I 1.920 H D DS: Provider Date of admission: 09/26/16 01:42 Primary care physician: Dago Rene MD Attending physician on admission: Jose Holloway Consults: 09/26/16 02:54 Consult to Case Mgmt/Social Srvs [CONS] Routine Reason for Case Mgmt/Social Srvs: Rehab 09/26/16 03:08 Consult to Dietitian [CONS] Routine Reason for Dietitian: Diet Recommendations Discharging clinician: Latisha Berry NP Expected date of discharge: 09/27/16
== END 2016-09-27 12:00 | disposition home or self-care (01) | DRG 247 ==
LOC: N.ED 22:29 → N.EDINP 09-26 01:42 → N.TELES 09-26 02:09
PROVIDERS: ADMIT Internal Medicine Cardiovascular Disease; ATTEND Internal Medicine Cardiovascular Disease

== ENCOUNTER 2017-03-30 11:05 | Observation (INO) ==
[2017-03-30] MEDS ORDERED: NITROGLYCERIN SL 0.4 MG TABLET SL PRN (12:16)
[2017-03-30] MEDS ORDERED: ASPIRIN 325 MG TABLET PO STA (12:16)
[2017-03-30] MEDS ORDERED: NITROGLYCERIN 2% OINT 1 INCH/GM PACK TOP STA (12:16)
[2017-03-30] MEDS ORDERED: ENOXAPARIN 100 MG/ML SYRINGE SUBCUT STA (12:16)
[2017-03-30] MEDS ORDERED: ENOXAPARIN 100 MG/ML SYRINGE SUBCUT ONE (12:24)
[2017-03-30] MEDS ORDERED: ASPIRIN 325 MG TABLET ONE (12:25)
[2017-03-30] MEDS ORDERED: NITROGLYCERIN 2% OINT 1 INCH/GM PACK TOP ONE (12:25)
[2017-03-30 13:12] LABS: Basophils % 0.4 % (0.0-0.8); Eosinophils % 0.7 % (0.00-10.9); Hematocrit 40.4 VOL% (42.0-52.0); Hemoglobin 13.2 GM/DL (14.0-18.0); Immature Granulocytes % 1.1 %; Immature Granulocytes Absolute 0.06 #; Lymphocytes # 0.6 10*3/uL (1.4-4.0); Lymphocytes % 10.8 % (21.2-54.2); Mean Corpuscular HGB Conc 32.7 GM/DL (32-36); Mean Corpuscular Hemoglobin 32 PG (27-34); Mean Platelet Volume 11.2 FL (9.6-12.0); Monocytes # 0.4 10*3/uL (0.11-0.8); Monocytes % 7.4 % (1.7-12.7); Neutrophils # 4.5 10*3/uL (1.4-7.4); Neutrophils % 79.6 % (38.7-73.9); Platelet Count 147 T/CUMM (130-400); Red Blood Count 4.08 MC/CUMM (3.8-5.5); Red Cell Distribution Width 14.1 % (9.3-17.3); White Blood Count 5.6 T/CUMM (4-12)
[2017-03-30 13:16] LABS: INR 0.9
[2017-03-30 13:33] LABS: Albumin 3.4 G/DL (3.4-5.0); Bilirubin,Total 0.4 MG/DL (0.2-1.0); Calcium 8.8 MG/DL (8.5-10.1); Osmolality,Calculated 282.5 MOS/KG (273-304); Potassium 4.2 MMOL/L (3.5-5.1); Total Protein 6.8 G/DL (6.4-8.3)
[2017-03-30] MEDS ORDERED: ONDANSETRON 4 MG/2 ML VIAL IV PRN (15:37)
[2017-03-30] MEDS ORDERED: MAGNESIUM SULF RIDER 4 GM in PREMIX 1 EACH IV PRN (15:37)
[2017-03-30] MEDS ORDERED: MAGNESIUM SULF RIDER 2 GM in PREMIX 1 EACH IV PRN (15:37)
[2017-03-30] MEDS: PANTOPRAZOLE 40 MG TABLET PO SCH (20:34)
[2017-03-30] MEDS: ATORVASTATIN 20 MG TABLET PO SCH (20:34)
[2017-03-30] MEDS: FERROUS GLUCONATE 324 MG TABLET PO SCH (20:34)
[2017-03-30] MEDS ORDERED: ENALAPRIL 10 MG TABLET PO SCH (21:00)
[2017-03-30] MEDS ORDERED: TROSPIUM 20 MG PO SCH (21:00)
[2017-03-31] MEDS ORDERED: DIAZEPAM 5 MG TABLET PO ONE (08:00)
[2017-03-31] MEDS ORDERED: MAGNESIUM SULF RIDER 2 GM in PREMIX 1 EACH IV PRN (08:00)
[2017-03-31] MEDS ORDERED: diphenhydrAMINE CAP 25 MG CAPSULE PO ONE (08:00)
[2017-03-31] MEDS ORDERED: POTASSIUM CHLORIDE RIDER 10 MEQ in PREMIX 1 EACH IV PRN (08:00)
[2017-03-31] MEDS: ENALAPRIL 10 MG TABLET PO SCH (08:24)
[2017-03-31] MEDS: PANTOPRAZOLE 40 MG TABLET PO SCH ×2 (08:25→21:32)
[2017-03-31] MEDS: ASPIRIN EC 81 MG TABLET PO SCH (08:25)
[2017-03-31] MEDS: amLODIPine 5 MG TABLET PO SCH (08:25)
[2017-03-31] MEDS: MULTIVITAMIN (CENTRUM) TABLET PO SCH (08:25)
[2017-03-31] MEDS: DUTASTERIDE 0.5 MG CAPSULE PO SCH (08:31)
[2017-03-31] MEDS: SODIUM CHLORIDE 0.9% 1,000 ML IV SCH ×2 (08:31→10:53)
[2017-03-31] MEDS: FERROUS GLUCONATE 324 MG TABLET PO SCH ×2 (08:31→21:32)
[2017-03-31] MEDS ORDERED: ENOXAPARIN 40 MG/0.4 ML SYRINGE SUBCUT SCH (09:00)
[2017-03-31] MEDS ORDERED: CLOPIDOGREL 75 MG TABLET PO SCH (09:00)
[2017-03-31] MEDS ORDERED: ENOXAPARIN 100 MG/ML SYRINGE SUBCUT SCH (09:00)
[2017-03-31] MEDS ORDERED: HEPARIN/NACL 0.9% 2 UNITS/ML 2,000 ML IV ONE (10:10)
[2017-03-31] MEDS ORDERED: LIDOCAINE 2%/EPI 20 ML VIAL ONE (10:10)
[2017-03-31] MEDS ORDERED: MIDAZOLAM 2 MG/2 ML VIAL ONE (10:50)
[2017-03-31] MEDS ORDERED: fentaNYL 100 MCG/2 ML VIAL ONE (10:50)
[2017-03-31] MEDS ORDERED: TIROFIBAN 5,000 MCG/100 ML PREMIX IV ONE (11:30)
[2017-03-31] MEDS ORDERED: CLOPIDOGREL 300 MG TABLET ONE (11:53)
[2017-03-31] MEDS ORDERED: TIROFIBAN 5,000 MCG/100 ML PREMIX IV SCH (12:00)
[2017-03-31] MEDS: ATORVASTATIN 20 MG TABLET PO SCH (21:32)
[2017-04-01 05:39] LABS: Basophils % 0.3 % (0.0-0.8); Eosinophils # 0.1 10*3/uL (0.0-0.87); Eosinophils % 1.5 % (0.00-10.9); Hematocrit 33.5 VOL% (42.0-52.0); Immature Granulocytes % 0.5 %; Immature Granulocytes Absolute 0.02 #; Lymphocytes # 0.5 10*3/uL (1.4-4.0); Lymphocytes % 12.6 % (21.2-54.2); Mean Corpuscular HGB Conc 32.8 GM/DL (32-36); Mean Corpuscular Hemoglobin 32 PG (27-34); Mean Corpuscular Volume 97.4 FL (87-102); Mean Platelet Volume 11.4 FL (9.6-12.0); Monocytes # 0.4 10*3/uL (0.11-0.8); Monocytes % 10.1 % (1.7-12.7); Platelet Count 125 T/CUMM (130-400); Red Blood Count 3.44 MC/CUMM (3.8-5.5); Red Cell Distribution Width 13.8 % (9.3-17.3)
[2017-04-01 05:47] LABS: Calcium 8.2 MG/DL (8.5-10.1); Osmolality,Calculated 278.4 MOS/KG (273-304); Potassium 3.9 MMOL/L (3.5-5.1)
[2017-04-01 05:50] LABS: Troponin I Only 0.4 NG/ML (0.00-0.045)
[2017-04-01] MEDS ORDERED: TICAGRELOR 90 MG TABLET PO SCH (09:00)
[2017-04-01] MEDS: FERROUS GLUCONATE 324 MG TABLET PO SCH (09:30)
[2017-04-01] MEDS: ENALAPRIL 10 MG TABLET PO SCH (09:30)
[2017-04-01] MEDS: amLODIPine 5 MG TABLET PO SCH (09:30)
[2017-04-01] MEDS: PANTOPRAZOLE 40 MG TABLET PO SCH (09:30)
[2017-04-01] MEDS: ASPIRIN EC 81 MG TABLET PO SCH (09:30)
[2017-04-01] MEDS: DUTASTERIDE 0.5 MG CAPSULE PO SCH (09:31)
[2017-04-01] MEDS: MULTIVITAMIN (CENTRUM) TABLET PO SCH (09:31)
[2017-04-01 11:52] VITALS: BP 145/62
[2017-04-01 13:23] LABS: Basophils % 0.4 % (0.0-0.8); Eosinophils # 0.1 10*3/uL (0.0-0.87); Eosinophils % 1.2 % (0.00-10.9); Hematocrit 33.8 VOL% (42.0-52.0); Hemoglobin 11.6 GM/DL (14.0-18.0); Immature Granulocytes % 0.4 %; Immature Granulocytes Absolute 0.02 #; Lymphocytes # 0.6 10*3/uL (1.4-4.0); Lymphocytes % 11.4 % (21.2-54.2); Mean Corpuscular HGB Conc 34.3 GM/DL (32-36); Mean Corpuscular Hemoglobin 33 PG (27-34); Mean Platelet Volume 11.3 FL (9.6-12.0); Monocytes # 0.5 10*3/uL (0.11-0.8); Monocytes % 9.6 % (1.7-12.7); Neutrophils # 3.7 10*3/uL (1.4-7.4); Platelet Count 128 T/CUMM (130-400); Red Blood Count 3.52 MC/CUMM (3.8-5.5); Red Cell Distribution Width 14.1 % (9.3-17.3); White Blood Count 4.8 T/CUMM (4-12)
== END 2017-04-01 15:07 | disposition home or self-care (01) ==
LOC: N.EDINP 11:05 → N.ED 11:05 → SUATTDRO 14:19 → N.TELEN 14:54
PROVIDERS: ADMIT Internal Medicine Interventional Cardiology; ATTEND Internal Medicine Clinical Cardiac Electrophysiology